=== PATIENT | female | born 1960 | race Caucasian/White ===

== ENCOUNTER → 2016-09-21 | Outpatient (CLI) | payer BC, OTHER ==
[~2016-09-21] MED LIST: ALPR-475 PO; BUPR100T6 PO; MELO-190 PO; RIVA20TA PO; TEMA15CA6 PO
== END | disposition home or self-care (01) ==
LOC: CFH 13:06
PROVIDERS: ATTEND Family Medicine
DX: R22.42 Localized swelling, mass and lump, left lower limb (principal); Z86.718 Personal history of other venous thrombosis and embolism

== ENCOUNTER → 2016-10-09 | Outpatient (CLI) | payer BC, OTHER | END | disposition home or self-care (01) | LOC: CVU 06:54 | PROVIDERS: ATTEND Surgery | DX: I83.92 Asymptomatic varicose veins of left lower extremity (principal); L81.9 Disorder of pigmentation, unspecified; R22.42 Localized swelling, mass and lump, left lower limb | CPT/HCPCS: 93970 ==

== ENCOUNTER 2016-12-13 12:39 | Emergency (ER) | payer BC, OTHER ==
[~2016-12-13] VITALS: Ht 167.6 cm; Wt 96.2 kg
[~2016-12-13 12:39] MED LIST changes: -MELO-190 PO; +MELO7.5T31 PO
[2016-12-13 12:49] VITALS: BP 131/85
== END 2016-12-13 13:43 | disposition home or self-care (01) ==
LOC: ED 13:30
DX: J00 Acute nasopharyngitis [common cold] (principal); R05 Cough; Z86.718 Personal history of other venous thrombosis and embolism
CPT/HCPCS: 71020; 99284

== ENCOUNTER 2016-12-21 08:32 | Emergency (ER) | payer BC, OTHER ==
[~2016-12-21] VITALS: Ht 167.6 cm; Wt 93.4 kg
[2016-12-21 08:35] VITALS: BP 133/83
[2016-12-21] MEDS ORDERED: ASCO500T12 PO (08:54)
[2016-12-21] MEDS ORDERED: OMEG1CAP6 PO (08:54)
[2016-12-21] MEDS ORDERED: ASPI-515 PO (08:54)
[2016-12-21] MEDS ORDERED: PHEN1CPM PO (08:54)
[2016-12-21] MEDS ORDERED: HYDR12.53 PO (08:54)
[2016-12-21] MEDS ORDERED: ACID1TAB PO (08:54)
[2016-12-21] MEDS ORDERED: MULT-6 PO (08:54)
== END 2016-12-21 09:19 | disposition home or self-care (01) ==
LOC: ED 09:08
DX: J01.00 Acute maxillary sinusitis, unspecified (principal); Z86.718 Personal history of other venous thrombosis and embolism
CPT/HCPCS: 99283

== ENCOUNTER 2019-11-20 20:53 | Emergency (ER) | payer OTHER ==
[~2019-11-20] VITALS: Ht 167.6 cm; Wt 114.6 kg
[~2019-11-20 20:53] MED LIST changes: +ACID1TAB PO; -ALPR-475 PO; +ALPR0.5T7 PO; +ASCO500T93 PO; +ASPI-515 PO; +HYDR12.517 PO; +MULT-6 PO; +OMEG1CAP6 PO; +PHEN1CPM PO
[2019-11-20 23:03] VITALS: BP 122/73
== END 2019-11-20 23:05 | disposition home or self-care (01) ==
LOC: ED 21:26
DX: S93.515A Sprain of interphalangeal joint of left lesser toe(s), initial encounter (principal); X58.XXXA Exposure to other specified factors, initial encounter; Y93.89 Activity, other specified; Y92.009 Unspecified place in unspecified non-institutional (private) residence as the place of occurrence of the external cause; Y99.8 Other external cause status
CPT/HCPCS: 99283